=== PATIENT | male | born 2005 | race African-American/Black ===

== ENCOUNTER 2024-12-11 17:02 | Emergency (ER) | payer SELFPAY ==
[~2024-12-11] VITALS: Ht 172.7 cm; Wt 73.0 kg
[2024-12-11 17:17] VITALS: BP 117/77; PULSE 74; RESP 16; TEMP 37; O2SAT 100
== END 2024-12-11 17:20 | disposition left against medical advice (07) ==
LOC: ER 17:02
DX: R55 Syncope and collapse (principal); Z53.21 Procedure and treatment not carried out due to patient leaving prior to being seen by health care provider